=== PATIENT | female | born 1955 | race Caucasian/White ===

== ENCOUNTER → 2021-11-30 | Outpatient (CLI) | payer MEDICARE ==
[~2021-11-30] MED LIST: PRILOSEC40 MG PO
[2021-11-30 10:38] LABS: BUN 15 mg/dl (7-24); CREATININE 0.69 mg/dL (0.55-1.02)
== END | disposition home or self-care (01) ==
LOC: CT 10:09
PROVIDERS: ATTEND Urology
DX: K44.9 Diaphragmatic hernia without obstruction or gangrene (principal)

== ENCOUNTER → 2021-12-07 | Outpatient (CLI) | payer MEDICARE | END | disposition home or self-care (01) | LOC: US 12:47 | PROVIDERS: ATTEND Urology | DX: D25.1 Intramural leiomyoma of uterus (principal) ==